=== PATIENT | female | born 1975 | race Caucasian/White ===

== ENCOUNTER 2023-08-09 06:51 | Emergency (ER) | payer SELFPAY ==
[2023-08-09 06:53] VITALS: BP 140/91
--- NOTE | 2023-08-09 08:03 | ED.GENMED ---
History of Present Illness
General
Chief Complaint: Skin Surface Trauma
Source: patient
Exam Limitations: none
Time Seen by Provider: 08/09/23 07:07
Nursing documentation reviewed up to this point in time: agreed with
Travel History
Have you had any contact with someone who has COVID-19?: No
Do you have any symptoms of coronavirus? Fever > 100 degrees, chills, cough, shortness of breath, sore throat, loss of taste or smell, muscle aches, or headache?: No
History of Present Illness
History of Present Illness:
47-year-old female past medical history of anxiety depression presenting to the emergency department today with concerns of right-sided middle finger laceration caused by a drip box tender when she was cutting boxes at work prior to arrival. She claims
that this is very clean not on blood thinners no no history of immunosuppression.
Past History
Past History
ED Past Medical History: Psychiatric and Other (pilonidal cyst)
ED Past Surgical History: Other (pilonidal cyst)
Social History
Tobacco: Non-smoker
Alcohol: None
Drug: None
Personal: Single
Living: with family
Employment: Employed
Review of Systems
Review of Systems
Allergies reviewed?: Yes
All Other Systems: ROS reviewed and negative except as documented in HPI and ROS
Phy Exam
Physical Exam
Physical Exam:
GENERAL: Alert , in no apparent distress
EYE: pupils equal and reactive
NECK: Supple, no significant adenopathy.
ENT: o/p clr, mmm.
CARDIAC: Regular rate and rhythm .
LUNGS: Clear breath sounds bilaterally, no acute respiratory distress, no wheezes/rales/rhonchi
ABDOMEN: Soft, without focal tenderness, no r/g, no cvat
NEUROLOGICAL: Alert and oriented, no focal neuro deficits
SKIN: Laceration to the distal right middle finger just above the distal nail. Warm and dry, skin intact.
MUSCULOSKELETAL: No edema, well perfused.
PSYCH: Normal and appropriate interaction.
Course
Orders/Labs/Results
Orders:
Orders
08/09/23 08:03
Tetanus/Diphth/Acelpertussis [Adacel] 0.5 ml IM .ONCE ONE
Vital Signs
Initial and Last Documented VS:
Initial Vital Signs
Temp Pulse Resp BP Pulse Ox
98.1 F 73 20 140/91 98
08/09/23 06:53 08/09/23 06:53 08/09/23 06:53 08/09/23 06:53 08/09/23 06:53
Last Documented Vital Signs
Temp Pulse Resp BP Pulse Ox
98.1 F 73 20 140/91 98
08/09/23 06:53 08/09/23 06:53 08/09/23 06:53 08/09/23 06:53 08/09/23 06:53
Procedures
Laceration Closure
Right Distal Third Finger:
Status of Wound: clean
Size of Wound in cm: 2.5
Description of Wound Edges: sharp
Preparation: cleaned with saline
Anesthesia: 1% Lidocaine and Digital-Regional
Revision/Debridement: routine- no revision
Wound exploration: explored to base- no FB and no tendon involvement
Type of Closure: single layer closure and running stitch
Skin Closure Material: 4-0 nylon
Number of sutures: 3
MDM/Problems Addressed
MDM/Problems Addressed:
47-year-old female presenting to the emergency department today with concerns of drip box tender cut to the right distal middle finger. No additional injuries neurovascularly intact not deep to the bone closed with 3 sutures otherwise given an updated
tetanus shot low risk for infection stable for outpatient management return precautions given.
*Critical Care Note
Total Time (30-74mins, 75-104mins- exclusive of procedures): Not Applicable
ED Attending Note
-
Portions of this chart may have been created with voice recognition software.� Occasional wrong word or��sound alike� substitutions may have occurred due to the inherent limitations of voice recognition software.
Discharge Plan
Departure
Patient Disposition: Home (Routine Discharge)
Date of Disposition: 08/09/23
Time of Disposition: 08:10
Patient with high blood pressure during this ER visit?: No
Condition: Good
Covid-19: Not Applicable
Discharge Problem:
Finger laceration
Instructions: Laceration Repair With Stitches (DC)
Prescriptions:
No Action
levonorgestrel [Mirena] 1 EACH intrauterine device
1 ea intrauterine UD
sertraline 25 MG tablet
25 mg PO DAILY
bupropion HCl 300 MG tablet extended release 24 hr
300 mg PO DAILY
amoxicillin-pot clavulanate 1 TABLET tablet
1 tab PO Q12 9 Days Qty: 19 0RF
Rx Instructions:
first dose evening of 08/19/21
Referrals:
Bonny Murphy DO [Family Provider] -
Stand Alone Forms: Return to Work
Activity Restrictions/Additional Instructions:
You came to the emergency department today with concerns of finger laceration. Please rest and ice the area and otherwise leave the sutures in place for 12 to 14 days and follow-up with primary care doctor for suture removal at that time. Please
keep the area clean and covered. Return to the emergency department for any worsening, new or concerning symptoms.
Interventions
Interventions:
*Risk Screen - Suicide Last Done: 08/09/23 06:53
*General Assessment Last Done: 08/09/23 06:53
*Neglect/Abuse Screening Last Done: 08/09/23 06:53
Discharge Date and Time
Print Language: ITALIAN
[2023-08-09] MEDS: ADACEL 0.5 ML IM (08:11)
== END 2023-08-09 08:30 | disposition home or self-care (01) ==
LOC: EMR 06:51
PROVIDERS: EMERGENCY PHYSICIAN Emergency Medicine; FAMILY PHYSICIAN Family Medicine
DX: S61.212A Laceration without foreign body of right middle finger without damage to nail, initial encounter (principal); W26.0XXA Contact with knife, initial encounter; F41.9 Anxiety disorder, unspecified; F32.A Depression, unspecified; Z23 Encounter for immunization
CPT/HCPCS: 99282; 90471; 12001; 90715